=== PATIENT | female | born 1955 | race Two or more races ===

== ENCOUNTER 2018-04-28 12:50 | Emergency (ER) | payer SELFPAY ==
[~2018-04-28] VITALS: Ht 165.1 cm; Wt 86.2 kg
[2018-04-28] MEDS ORDERED: LORAZEPAM INJ 2 MG/ML VIAL ONE (13:19)
[2018-04-28 13:20] LABS: BASOPHILS % (AUTO) 1.1 % (0.0-2.0); EOSINOPHILS % (AUTO) 2.1 % (0.0-6.0); HEMATOCRIT 41 % (33-45); LYMPHOCYTES # (AUTO) 1.7 /CMM (0.8-4.8); MEAN CORPUSCULAR HGB CONC 34 g/dl (31.0-36.0); MEAN CORPUSCULAR VOLUME 89 fL (82-100); MONOCYTES # (AUTO) 0.3 /CMM (0.1-1.30); MONOCYTES % (AUTO) 7.6 % (2.0-12.0); NEUTROPHILS # (AUTO) 2.3 /CMM (1.8-8.9); NEUTROPHILS % (AUTO) 52.2 % (43.0-81.0); PLATELET COUNT (AUTO) 235 /CMM (150-450); RED BLOOD CELL COUNT(AUTO) 4.59 MIL/uL (4.0-5.2); WHITE BLOOD COUNT (AUTO) 4.5 K/uL (4.3-11.0)
[2018-04-28 13:30] LABS: CALCIUM, SERUM 9.7 mg/dL (8.5-10.1); CARBON DIOXIDE 28 mmol/L (21-32); CHLORIDE 106 mmol/L (98-107); CREATININE 0.9 mg/dL (0.6-1.3); GLUCOSE 104 mg/dL (74-106); POTASSIUM 3.7 mmol/L (3.5-5.1); SODIUM SERUM 139 mmol/L (136-145); UREA NITROGEN, BLOOD 11 mg/dL (7-18)
[2018-04-28] MEDS ORDERED: LORAZEPAM INJ 2 MG/ML VIAL IVP ONE (13:30)
[2018-04-28] MEDS ORDERED: ONDANSETRON HCL/PF 4 MG/2 ML VIAL IVP ONE (13:30)
[2018-04-28] MEDS ORDERED: IV NS 0.9% 500 ML BAG IV ONE (13:30)
--- NOTE | 2018-04-28 13:32 | NUR ---
[id number] FROM HOME FOR ANXIETY S/P HOUSE BREAK IN. PT SPEAKS BRAZILIAN, [place] EMT ASSISTED W/ TRANSLATION. AAOX4, VSS. DENIES CP, SOB, DIZZINESS, N/V @ THIS TIME. PT SEEN & EVAL'D BY DR. BAEZ. MEDICATED FOR ANXIETY & WILL CONT TO MONITOR.
[2018-04-28 13:35] LABS: ALANINE AMINOTRANSFERASE 25 U/L (12-78); ALBUMIN 4.1 g/dL (3.4-5.0); ALCOHOL, BLOOD < 3 mg/dL (0-0); ALKALINE PHOSPHATASE 77 U/L (46-116); ASPARTATE AMINOTRANSFERASE 17 U/L (15-37); BILIRUBIN,DIRECT 0.1 mg/dL (0.0-0.2); BILIRUBIN,TOTAL 0.6 mg/dL (0.2-1.0)
--- NOTE | 2018-04-28 14:09 | NUR ---
Patient discharged to home in stable condition. Written and verbal after care instructions given BY DR. BAEZ TO PT. Patient verbalizes understanding of instruction. IV removed. Catheter intact and site benign. Pressure and 4x4 applied to site. No bleeding noted.
[2018-04-28 14:10] VITALS: BP 147/83
== END 2018-04-28 14:11 | disposition home or self-care (01) ==
LOC: ER 12:52
DX: F41.9 Anxiety disorder, unspecified (principal); I10 Essential (primary) hypertension
CPT/HCPCS: 36415; 80048-TC; 80076-TC; 85025-TC; G0480; J2060; J7040